=== PATIENT | female | born 1970 ===

== ENCOUNTER 2019-03-16 10:30 | Inpatient (IN) | payer OTHER ==
[~2019-03-16] VITALS: Ht 154.9 cm; Wt 62.6 kg
[2019-03-16] MEDS ORDERED: ZYRTEC10 M3 PO (13:15)
== END 2019-03-19 10:07 | disposition home or self-care (01) | DRG 735 ==
LOC: O/R 10:30 → SURH 03-18 10:30
PROVIDERS: ADMIT Obstetrics & Gynecology Gynecologic Oncology
PROC: 0UT94ZZ Resection of Uterus, Percutaneous Endoscopic Approach (ICD-10-PCS; 2019-03-18)
PROC: 0UT54ZZ Resection of Right Fallopian Tube, Percutaneous Endoscopic Approach (ICD-10-PCS; 2019-03-18)
PROC: 0UT04ZZ Resection of Right Ovary, Percutaneous Endoscopic Approach (ICD-10-PCS; 2019-03-18)
PROC: 07TC4ZZ Resection of Pelvis Lymphatic, Percutaneous Endoscopic Approach (ICD-10-PCS; principal; 2019-03-18 15:30)
DX: D25.1 Intramural leiomyoma of uterus (principal); N84.0 Polyp of corpus uteri; N80.0 Endometriosis of uterus; N72 Inflammatory disease of cervix uteri; N73.6 Female pelvic peritoneal adhesions (postinfective); N80.2 Endometriosis of fallopian tube; N80.1 Endometriosis of ovary; Z15.09 Genetic susceptibility to other malignant neoplasm